=== PATIENT | male | born 1965 | race Caucasian/White ===

== ENCOUNTER 2017-02-13 01:29 | Emergency (ER) | payer OTHER ==
--- NOTE | 2017-02-13 03:48 | ED CLINICAL REPORT ---
Clinical Report - Physicians/Mid Levels Formerly [facility] [address] [place] [address] 02/13/2017 1:32 Patient: ERNESTO MISTRY Time Seen: 02:19 Feb 13 2017. Arrived- By private vehicle. Historian- patient. CPT: ER phys charges level 3 plus (#[id number]). Ant/nasal hemorrhage simple (#[id number]). HISTORY OF PRESENT ILLNESS Chief Complaint: NOSEBLEED. Since today Patient states that gets occasional nosebleeds. He states having a severe nosebleed starting "4pm"). and is still present. Location- right nare. The patient has had epistaxis. No complaint of foreign body in the nare, nasal discharge or congestion, recent nasal injury or sore throat. Similar symptoms previously: As bad. Diagnosis: anterior nosebleed. Recent medical care: Not recently seen/assessed. REVIEW OF SYSTEMS No fever, chills, excessive bruising, bleeding from gums or headache. No cough, difficulty breathing, chest pain, nausea or vomiting. No diarrhea, abdominal pain, black stools, difficulty with urination or skin rash. No bloody stools. All systems otherwise negative, except as recorded above. PAST HISTORY Has had prior nosebleeds. Laceration. Prior Injury, Same Area. Seizure Disorder. Malignant neoplasm of brain. - Rib Fracture. ADDITIONAL SURGERIES: Brain. Carpal Tunnel Surgery. Medications: Lomustine Oral. Atorvastatin Calcium Oral 40 mg, daily. Avastin Intravenous. Dexamethasone Oral. Keppra Oral 750 mg, 2x a day. Multivitamin Oral. Allergies: No Known Drug Allergy. SOCIAL HISTORY Never smoker. No alcohol use or drug use. ADDITIONAL NOTES The nursing notes have been reviewed. PHYSICAL EXAM Vital Signs: 02/13/2017 01:43 BP: 137/84. HR: 88. RR: 20. O2 saturation: 96%. Temp: 98 F. Pain level now: 7/10. Appearance: Alert. No acute distress. Eyes: Eyes normal inspection. ENT: Ears normal. Throat: Pharynx normal. Nose: Minimal right-nare active bleeding anteriorly and from septum. Fresh clots present. Dried blood present. Neck: Normal inspection. CVS: Normal heart rate and rhythm. Heart sounds normal. Respiratory: No respiratory distress. Breath sounds normal. Abdomen: Soft and nontender. Skin: Skin warm. Normal skin color. No rash. Neuro: Oriented X 3. PROGRESS AND PROCEDURES Patient/family counseled. Disposition: Discharged. Condition: stable. CLINICAL IMPRESSION Acute anterior, transient epistaxis INSTRUCTIONS No strenuous activity. Rest. (No hot liquids, do not touch nose for 1 week. , cough and sneeze through open mouth, keep head above heart level. No aspirin or motrin. Tylenol is good for pain. Use afrin and nose clamp if bleeding starts.). Your Current Medications: CONTINUE TAKING THE FOLLOWING MEDICATIONS: Atorvastatin Calcium Oral : 40 mg daily. Avastin Intravenous. Dexamethasone Oral. Keppra Oral : 750 mg 2x a day. Lomustine Oral. Multivitamin Oral. Follow-up: Return to the emergency department if worse. Follow up with your doctor in four days. Call for an appointment. Understanding of the discharge instructions verbalized by patient. (Electronically signed by Wayne Pickens MD 02/17/2017 23:31)
--- NOTE | 2017-02-13 03:48 | ED CLINICAL REPORT ---
Clinical Report - Physicians/Mid Levels Formerly [facility] [address] [place] [address] 02/13/2017 1:32 Patient: ERNESTO MISTRY Time Seen: 02:19 Feb 13 2017. Arrived- By private vehicle. Historian- patient. CPT: ER phys charges level 3 plus (#[id number]). Ant/nasal hemorrhage simple (#[id number]). HISTORY OF PRESENT ILLNESS Chief Complaint: NOSEBLEED. Since today Patient states that gets occasional nosebleeds. He states having a severe nosebleed starting "4pm"). and is still present. Location- right nare. The patient has had epistaxis. No complaint of foreign body in the nare, nasal discharge or congestion, recent nasal injury or sore throat. Similar symptoms previously: As bad. Diagnosis: anterior nosebleed. Recent medical care: Not recently seen/assessed. REVIEW OF SYSTEMS No fever, chills, excessive bruising, bleeding from gums or headache. No cough, difficulty breathing, chest pain, nausea or vomiting. No diarrhea, abdominal pain, black stools, difficulty with urination or skin rash. No bloody stools. All systems otherwise negative, except as recorded above. PAST HISTORY Has had prior nosebleeds. Laceration. Prior Injury, Same Area. Seizure Disorder. Malignant neoplasm of brain. - Rib Fracture. ADDITIONAL SURGERIES: Brain. Carpal Tunnel Surgery. Medications: Lomustine Oral. Atorvastatin Calcium Oral 40 mg, daily. Avastin Intravenous. Dexamethasone Oral. Keppra Oral 750 mg, 2x a day. Multivitamin Oral. Allergies: No Known Drug Allergy. SOCIAL HISTORY Never smoker. No alcohol use or drug use. ADDITIONAL NOTES The nursing notes have been reviewed. PHYSICAL EXAM Vital Signs: 02/13/2017 01:43 BP: 137/84. HR: 88. RR: 20. O2 saturation: 96%. Temp: 98 F. Pain level now: 7/10. Appearance: Alert. No acute distress. Eyes: Eyes normal inspection. ENT: Ears normal. Throat: Pharynx normal. Nose: Minimal right-nare active bleeding anteriorly and from septum. Fresh clots present. Dried blood present. Neck: Normal inspection. CVS: Normal heart rate and rhythm. Heart sounds normal. Respiratory: No respiratory distress. Breath sounds normal. Abdomen: Soft and nontender. Skin: Skin warm. Normal skin color. No rash. Neuro: Oriented X 3. PROGRESS AND PROCEDURES Patient/family counseled. Disposition: Discharged. Condition: stable. CLINICAL IMPRESSION Acute anterior, transient epistaxis INSTRUCTIONS No strenuous activity. Rest. (No hot liquids, do not touch nose for 1 week. , cough and sneeze through open mouth, keep head above heart level. No aspirin or motrin. Tylenol is good for pain. Use afrin and nose clamp if bleeding starts.). Your Current Medications: CONTINUE TAKING THE FOLLOWING MEDICATIONS: Atorvastatin Calcium Oral : 40 mg daily. Avastin Intravenous. Dexamethasone Oral. Keppra Oral : 750 mg 2x a day. Lomustine Oral. Multivitamin Oral. Follow-up: Return to the emergency department if worse. Follow up with your doctor in four days. Call for an appointment. Understanding of the discharge instructions verbalized by patient. (Electronically signed by Wayne Pickens MD 02/17/2017 23:31)
--- NOTE | 2017-02-13 03:48 | ED NURSING NOTES ---
Clinical Report - Nurses [facility] [address] [place] [address] 02/13/2017 1:32 Patient: ERNESTO MISTRY TRIAGE Triage time 01:43. Acuity: LEVEL 3. Chief Complaint: NOSEBLEED. Alert. SEPSIS SCREEN: Sepsis Screen. Negative (no infection suspected/documented). KATERINA COMA SCORE: [place] Coma Scale: 15- eyes open spontaneously (4); best verbal response- oriented x 4 (5); best motor response- obeys commands (6). --01:50 Nathaniel Beck R.N. 01:43 02/13/17. BP: 137/84. HR: 88. RR: 20. O2 saturation: 96% on room air. Temp: 98 F. Pain level now: 06/07. --01:50 Nathaniel Beck R.N. Weight: 83.9 kg stated. Height/Length: 68 inches Per Patient. BMI: 28.1. --01:43 Nathaniel Beck R.N. Medications Atorvastatin Calcium Oral 40 mg, daily. Avastin Intravenous. Dexamethasone Oral. Keppra Oral 750 mg, 2x a day. Multivitamin Oral. --01:46 Nathaniel Beck R.N. Lomustine Oral. --01:47 Nathaniel Beck R.N. Allergies No Known Drug Allergy. --01:46 Nathaniel Beck R.N. History Arrived by private vehicle. Historian: patient. Accompanied by daughter. This started today. ( Patient states that gets occasional nosebleeds. He states having a severe nosebleed starting "4pm"). SOCIAL HX: Never smoker. No alcohol use or drug use. ABUSE ASSESSMENT: No report of abuse. SELF HARM ASSESSMENT: A self harm assessment was performed. The patient answered "no" to the question "Have you recently felt down, depressed, or hopeless?", "Have you noticed less interest or pleasure in doing things?", "Do you have thoughts of harming or killing yourself?", "Are you here because you tried to hurt yourself?", "Have you ever tried to hurt yourself before today?" and "Have you recently had thoughts about harming or killing others?". NUTRITIONAL RISK ASSESSMENT: The nutritional risk assessment revealed no deficiencies. LEARNING NEEDS ASSESSMENT: The learning needs assessment revealed no barriers. FALL RISK ASSESSMENT: Fall risk assessment completed. Risk factors identified include patient impairment of mobility. Fall interventions initiated. Side rails up x2. Patient identified as a fall risk. Family at bedside. Call light in reach of patient. --01:50 Nathaniel Beck R.N. PROBLEMS: Laceration. Prior Injury, Same Area. Seizure Disorder. Malignant neoplasm of brain. --01:46 Nathaniel Beck R.N. Rib Fracture. --01:47 Nathaniel Beck R.N. ADDITIONAL SURGERIES: Brain. Carpal Tunnel Surgery. --01:47 Nathaniel Beck R.N. Interventions ID band on patient. To treatment room. --01:50 Nathaniel Beck R.N. PHYSICAL ASSESSMENT ( patient has placed tissues in his nose, and states that he does not believe blood is going down his throat currently. No external nose bleeding observed currently. Awaiting physician for exam.). GENERAL / NEURO / PSYCH: Alert. Appears in no acute distress. RESPIRATORY: Respirations not labored. SKIN: Skin is warm and dry. --01:51 Nathaniel Beck R.N. NURSING PROGRESS NOTES Pulse oximeter and NIBP monitor placed on patient. Head of bed elevated. Reassurance given. Two patient identifiers checked. Call light placed in reach. Side rails up x 2. Bed placed in lowest position. Brakes of bed on. Patient ready for evaluation- chart flagged. Patient waiting for evaluation. --01:52 Nathaniel Beck R.N. 03:30. ( Patient transferred to wheelchair with assistance of daughter/caregiver, and did not have a recurring bleeding episode from the time the doctor treated his nose to the time of discharge.). --04:03 Nathaniel Beck R.N. DISPOSITION / DISCHARGE 03:30 02/13/17. BP: 126/92. HR: 75. RR: 20 (unlabored). O2 saturation: 96% on room air. Additional comments: no change in pain from previous assessment. --03:47 Nathaniel Beck R.N. No learning barriers present. Discharge instructions provided and reviewed with the patient and family. Reviewed warnings. Treatments reviewed. Reviewed referrals for followup. Patient and family verbalized understanding. Written instructions provided in [place]. The patient was discharged home and accompanied by family. He left the Emergency Department in a wheelchair and via private vehicle. Family member driving. --03:47 Nathaniel Beck R.N. Locked/Released at 02/13/2017 4:03 by Nathaniel Beck R.N.
--- NOTE | 2017-02-17 23:31 | ED MED RECONCILIATION SUMMARY ---
Patient: ERNESTO MISTRY Medication Reconciliation Report [facility] VisitID: [id number] [address] [place] [address] 51y, M Registration Date/Time: 02/13/2017 Weight: 83.9 kg Height/Length: 68 in. BMI: 28.1 ALLERGIES: No Known Drug Allergy The patient's Home Medications are listed below: CONTINUE TAKING THE FOLLOWING MEDICATIONS: Atorvastatin Calcium Oral 40 mg, daily Avastin Intravenous Dexamethasone Oral Keppra Oral 750 mg, 2x a day Lomustine Oral Multivitamin Oral The source(s) of the original Home Medication information: Not obtained. The following Medications were given to the patient in the Emergency Department: None. The following Medications were prescribed to the patient: None.
--- NOTE | 2017-02-17 23:31 | ED MAR SUMMARY ---
..... Medication Administration Record [facility] [address] [place], [place] [id number] Patient: ERNESTO MISTRY Visit ID: [id number] 51y, M Weight: 83.9 kg Height/Length: 68 in BMI: 28.1 ALLERGIES: No Known Drug Allergy
--- NOTE | 2017-02-17 23:31 | ED DISCHARGE INSTRUCTIONS ---
Patient: ERNESTO MISTRY General Instructions [facility] VisitID: [id number] [place] [address] 51y, M Registration Date/Time: 02/13/2017 Acute anterior, transient epistaxis INSTRUCTIONS No strenuous activity. Rest. (No hot liquids, do not touch nose for 1 week. , cough and sneeze through open mouth, keep head above heart level. No aspirin or motrin. Tylenol is good for pain. Use afrin and nose clamp if bleeding starts.). Your Current Medications: CONTINUE TAKING THE FOLLOWING MEDICATIONS: Atorvastatin Calcium Oral : 40 mg daily. Avastin Intravenous. Dexamethasone Oral. Keppra Oral : 750 mg 2x a day. Lomustine Oral. Multivitamin Oral. Follow-up: Return to the emergency department if worse. Follow up with your doctor in four days. Call for an appointment. Understanding of the discharge instructions verbalized by patient. ADDITIONAL INFORMATION Nosebleed [Adult] Bleeding from the nose most commonly occurs due to injury or drying and cracking of the inner lining of the nose. This can occur during a "common cold," "hay fever" attack, a very hot day, or from dry air in the winter. High blood pressure and hardening of the arteries (atherosclerosis) may also cause nosebleeds. If the bleeding site is found, it may be treated with a chemical or heat or electricity to cause a blood clot to form (cauterized). If the bleeding continues after cautery or if the bleeding site cannot be found, a packing may be placed in your nose to apply pressure and stop the bleeding. The packing may be made of gauze or sponge. A small balloon catheter is sometimes used. These need to be removed by your doctor. Some types of packing dissolve on their own. Home Care: If a packing was put in your nose, unless told otherwise, do not pull on it or try to remove it yourself. You will be given an appointment to have it removed. You may also have been given antibiotics to prevent a sinus infection. If so, complete all the medicine. Do not blow your nose for 12 hours after the bleeding stops. This will allow a strong blood clot to form. Do not pick your nose. This may restart bleeding. Avoid alcohol and hot liquids for the next two days. Alcohol or hot liquids in your mouth can dilate blood vessels in your nose and cause bleeding to start again. Do not take ibuprofen (Advil, Motrin), naprosyn (Aleve) or aspirin-containing medicines since these thin the blood and may promote nose bleeding. You may take Tylenol (acetaminophen) for pain, unless another pain medicine was prescribed. If the bleeding starts again, sit up and lean forward to prevent swallowing blood. Pinch your nose tightly for exactly 5 minutes (watch the clock). If bleeding is not controlled, continue to pinch and call your doctor or return to this facility. If high blood pressure was a cause for your nosebleed, have your blood pressure checked again tomorrow. If you have a "cold" or "hay fever" or dry nasal membranes, lubricate the nasal passages by applying a small amount of Vaseline inside the nose with a Q-tip twice a day (morning and night). Avoid overheating your home, which can dry the air and worsen your condition. Follow Up with your doctor as advised for packing removal. Nasal packing should be rechecked or removed within 2-3 days. Get Prompt Medical Attention if any of the following occur: Another nosebleed that you cannot control Dizziness, weakness or fainting Fever of 100.4F (38C) or higher, or as directed by your healthcare provider Headache Sinus or facial pain Shortness of breath or trouble breathing You have been given the following additional information: Epistaxis (Adult) No strenuous activity. Rest. (Electronically signed by Wayne Pickens MD 02/17/2017 23:31)
--- NOTE | 2017-02-17 23:31 | ED MAR SUMMARY ---
..... Medication Administration Record [facility] [address], [place] [id number] Patient: ERNESTO MISTRY Visit ID: [id number] 51y, M Weight: 83.9 kg Height/Length: 68 in BMI: 28.1 ALLERGIES: No Known Drug Allergy
--- NOTE | 2017-02-17 23:31 | ED MED RECONCILIATION SUMMARY ---
Patient: ERNESTO MISTRY Medication Reconciliation Report [facility] VisitID: [id number] [address] [place] [address] 51y, M Registration Date/Time: 02/13/2017 Weight: 83.9 kg Height/Length: 68 in. BMI: 28.1 ALLERGIES: No Known Drug Allergy The patient's Home Medications are listed below: CONTINUE TAKING THE FOLLOWING MEDICATIONS: Atorvastatin Calcium Oral 40 mg, daily Avastin Intravenous Dexamethasone Oral Keppra Oral 750 mg, 2x a day Lomustine Oral Multivitamin Oral The source(s) of the original Home Medication information: Not obtained. The following Medications were given to the patient in the Emergency Department: None. The following Medications were prescribed to the patient: None.
== END 2017-02-13 03:30 | disposition home or self-care (01) ==
LOC: ED SRH 01:29
DX: R04.0 Epistaxis (principal); Z79.899 Other long term (current) drug therapy